=== PATIENT | male | born 1940 | race Caucasian/White ===

== ENCOUNTER → 2021-10-16 | Outpatient (REF) | payer MEDICARE, OTHER ==
[~2021-10-16] MED LIST: ALB2.5NEB INH; ALBUTEROL INH; ASPI81TA83 OR; ASPI81TA85; COUM1TAB17 OR; ELIQ5TAB PO; FINA5TAB2 PO; FISH1000 OR; FURO20TA2 PO; GLUC850T OR; GLYB1TAB29 OR; JANU100T PO; JANUVIA PO; LISI10TA22 PO; LISI20TA5 OR; LORA-674 PO; MAGN1TAB26 PO; METO1TAB87 PO; NAPR500T OR; OMEP-173 PO; PERC5TAB8 OR; PERC7.5T12 PO; PERC7.5T8 OR; SIMV40TA2 OR; TAMS1CAP17 PO; WARF5VL PO; heparin SC
[2021-10-17 11:36] LABS: APPEARANCE, URINE CLEAR (CLEAR); BACTERIA, URINE AUTO NEGATIVE (NEGATIVE); BILIRUBIN, URINE AUTO NEGATIVE (NEGATIVE); BLOOD, URINE BLOOD 3+ (NEGATIVE); COLOR, URINE YELLOW (YELLOW); GLUCOSE, URINE (UA) AUTO NEGATIVE (NEGATIVE); KETONE, URINE AUTO NEGATIVE (NEGATIVE); LEUKOCYTE ESTERASE, URINE AUTO NEGATIVE (NEGATIVE); MUCUS, URINE SMALL (NEGATIVE); NITRITE, URINE AUTO NEGATIVE (NEGATIVE); PROTEIN, URINE AUTO 2+ mg/dL (NEGATIVE); RBC, URINE AUTO 26 /HPF (0-3); SQUAMOUS EPITHELIAL CELL UR AU 0 /HPF (0-6); UROBILINOGEN, URINE AUTO 0.2 mg/dL (0.0-2.0); WBC, URINE AUTO 2 /HPF (0-3)
== END ==
LOC: M SFHCCLAY 14:00
PROVIDERS: ATTEND Nurse Practitioner Women's Health
DX: N28.89 Other specified disorders of kidney and ureter (principal)

== ENCOUNTER 2021-10-17 20:22 | Emergency (ER) | payer MEDICARE, OTHER ==
[~2021-10-17] VITALS: Ht 170.2 cm; Wt 100.7 kg
[~2021-10-17 20:22] MED LIST changes: -ELIQ5TAB PO; -FINA5TAB2 PO; -FURO20TA2 PO; -JANU100T PO; -LISI10TA22 PO; -LORA-674 PO; -MAGN1TAB26 PO; -METO1TAB87 PO; -OMEP-173 PO; -TAMS1CAP17 PO
[2021-10-17 20:56] VITALS: BP 149/72
[2021-10-17] MEDS ORDERED: FURO20TA2 PO (21:58)
[2021-10-17] MEDS ORDERED: TAMS1CAP17 PO (21:58)
[2021-10-17] MEDS ORDERED: LISI10TA22 PO (21:58)
[2021-10-17] MEDS ORDERED: OMEP-173 PO (21:58)
[2021-10-17] MEDS ORDERED: FINA5TAB2 PO ×2 (21:58→21:59)
[2021-10-17] MEDS ORDERED: METO1TAB87 PO (21:58)
[2021-10-17] MEDS ORDERED: MAGN1TAB26 PO (21:58)
[2021-10-17] MEDS ORDERED: JANU100T PO (21:58)
[2021-10-17] MEDS ORDERED: LORA-674 PO (21:58)
[2021-10-17] MEDS ORDERED: ELIQ5TAB PO (21:58)
== END 2021-10-17 22:18 | disposition left against medical advice (07) ==
LOC: M ED 20:22
DX: Z53.21 Procedure and treatment not carried out due to patient leaving prior to being seen by health care provider (principal)

== ENCOUNTER → 2021-11-14 | Outpatient (REF) | payer MEDICARE, OTHER ==
[~2021-11-14] MED LIST changes: +ELIQ5TAB PO; +FINA5TAB2 PO; +FURO20TA2 PO; +JANU100T PO; +LISI10TA22 PO; +LORA-674 PO; +MAGN1TAB26 PO; +METO1TAB87 PO; +OMEP-173 PO; +TAMS1CAP17 PO
== END ==
LOC: M SMT 17:02
PROVIDERS: ATTEND Urology
DX: R33.9 Retention of urine, unspecified (principal)

== ENCOUNTER 2021-11-19 04:53 | Observation (INO) | payer MEDICARE, OTHER ==
[~2021-11-19] VITALS: Ht 180.3 cm; Wt 90.1 kg
[2021-11-19] MEDS ORDERED: NS 1,000 ML IV ONE (05:15)
[2021-11-19 05:56] LABS: BASO % 0.1 % (0.0-1.0); EOS % 0.1 % (0.0-3.0); HEMATOCRIT 25.5 % (42.0-52.0); HEMOGLOBIN 8.6 g/dl (13.5-17.5); LYMPH # 1.4 10^3/uL (1.5-5.0); LYMPH % 17.4 % (24.0-44.0); MEAN CORPUSCULAR HEMOGLOBIN 28.1 pg (27.0-33.0); MEAN CORPUSCULAR HGB CONC 33.7 g/dl (32.0-36.5); MEAN CORPUSCULAR VOLUME 83.3 fl (80.0-96.0); MONO # 0.7 10^3/uL (0.0-0.8); MONO % 8.4 % (2.0-8.0); NEUTROPHILS # 5.8 10^3/uL (1.5-8.5); NEUTROPHILS % 72.6 % (36.0-66.0); PLATELET COUNT, AUTOMATED 122 10^3/uL (150-450); RED BLOOD COUNT 3.06 10^6/uL (4.30-6.10)
[2021-11-19 05:58] LABS: CK-MB VALUE MASS 1.6 NG/ML (<3.6); MB/CK RELATIVE INDEX 5.16 (< OR =4)
[2021-11-19] MEDS ORDERED: ONDANSETRON 4MG/2ML VIAL IV PRN (06:00)
[2021-11-19] MEDS ORDERED: SCOPOLAMINE 1MG TRANSDERMAL PATCH TOP PRN (06:00)
[2021-11-19] MEDS ORDERED: MORPHINE 2 MG/ML 1ML VIAL IV PRN (06:00)
[2021-11-19 06:10] VITALS: BP 208/123
[2021-11-19 06:11] LABS: ACETAMINOPHEN LEVEL < 2.0 UG/ML (10.0-30.0); ALBUMIN 2.9 GM/DL (3.2-5.2); ALT/SGPT 12 U/L (12-78); BILIRUBIN,DIRECT 0.3 MG/DL (0.0-0.2); BILIRUBIN,TOTAL 0.6 MG/DL (0.2-1.0); BLOOD UREA NITROGEN 22 MG/DL (7-18); CALCIUM LEVEL 9.5 MG/DL (8.8-10.2); CARBON DIOXIDE LEVEL 23 MEQ/L (21-32); CHLORIDE LEVEL 104 MEQ/L (98-107); CREATININE FOR GFR 1.75 MG/DL (0.70-1.30); ETHYL ALCOHOL (ETHANOL) < 0.003 % (0.000-0.010); GLOMERULAR FILTRATION RATE 39.9 (>35); GLUCOSE, FASTING 189 MG/DL (70-100); POTASSIUM SERUM 3.9 MEQ/L (3.5-5.1); SALICYLATE LEVEL < 1.7 MG/DL (5.0-30.0); SODIUM LEVEL 136 MEQ/L (136-145); TOTAL PROTEIN 6.6 GM/DL (6.4-8.2)
[2021-11-19 06:19] LABS: RSV AMPLIFICATION NEGATIVE (NEGATIVE)
[2021-11-19] MEDS ORDERED: BISACODYL 10 MG SUPP PR PRN (12:20)
[2021-11-19] MEDS ORDERED: LORazepam 1 MG TAB PO PRN ×2 (12:20→13:15)
[2021-11-19] MEDS ORDERED: ATROPINE SULFATE 1% OP SOLN 2 ML BTL SL PRN (12:20)
[2021-11-19] MEDS ORDERED: MORPHINE 10MG/0.5ML ORAL CONCENTRATE SOLUTION U/D SL PRN ×2 (12:20→13:15)
[2021-11-19] MEDS ORDERED: HYOSCYAMINE SULFATE 0.125 MG SUBL TABLET PO PRN (12:20)
[2021-11-19] MEDS ORDERED: LORazepam 2 MG/ML VIAL IV PRN ×2 (12:20→13:15)
[2021-11-19] MEDS ORDERED: FLEET ENEMA PR PRN (12:20)
[2021-11-19] MEDS ORDERED: ACETAMINOPHEN 650 MG SUPP PR PRN (12:20)
[2021-11-19] MEDS: MORPHINE 2 MG/ML 1ML VIAL IV PRN ×2 (13:30→14:59)
== END 2021-11-19 17:30 | disposition expired ==
LOC: EDBD 04:53 → M ED 04:53 → M ED INP 04:54 → ENRESERV 08:51 → M MSPAV 09:23
PROVIDERS: ADMIT Internal Medicine; ATTEND Family Medicine
DX: I61.1 Nontraumatic intracerebral hemorrhage in hemisphere, cortical (principal); Z51.5 Encounter for palliative care; I48.91 Unspecified atrial fibrillation; Z79.01 Long term (current) use of anticoagulants; Z88.8 Allergy status to other drugs, medicaments and biological substances; Z79.899 Other long term (current) drug therapy
CPT/HCPCS: 70450; 72125; 80048; 80076; 80143; 82077; 82140; 82550; 82553; 83605; 84443; 84484; 85025; 87631; 93041; 94760; 96374; 96375; 96376; 99285; G0378; J2060; J2270